=== PATIENT | male | born 1970 | race African-American/Black ===

== ENCOUNTER → 2022-08-08 | Emergency (ER) | payer BC ==
[~2022-08-08] VITALS: Ht 190.5 cm; Wt 126.0 kg
[2022-08-08 19:10] VITALS: BP 166/96
== END | disposition left against medical advice (07) ==
LOC: ER 18:39
DX: M25.562 Pain in left knee (principal); Z53.21 Procedure and treatment not carried out due to patient leaving prior to being seen by health care provider